=== PATIENT | female | born 1990 | race Caucasian/White ===

== ENCOUNTER 2020-06-21 17:56 | Emergency (ER) | payer MEDICAID ==
[2020-06-21] MEDS: Albuterol/Ipratropium 3.0-0.5 MG/3 ML Neb Soln NEB PRN (18:10)
[2020-06-21] MEDS: Morphine 2 MG/ML SYRINGE IVPUSH ONE ×2 (18:15→18:27)
[2020-06-21] MEDS: LORazepam 2 MG/ML SDV IVPUSH ONE (18:21)
[2020-06-21] MEDS: Morphine 4 MG/ML VIAL IVPUSH ONE (18:33)
[2020-06-21] MEDS: Iopamidol 755 Mg/ML 100 ML Bottle IV PRN (19:06)
[2020-06-21] MEDS: Sodium Chloride 0.9% 50 ML SDV FLUSH SCH (19:06)
[2020-06-21] MEDS: methylPREDNISolone Sodium Succinate 40 MG/1 ML SDV IVPUSH ONE (19:41)
--- NOTE | 2020-06-21 20:52 | ER ---
HPI: A 30-year-old lady who comes in with her with complaints of shortness of breath and coughing, this started yesterday. She tells me that the cough is dry and it sounds very hard and harsh. The patient has not been running a fever. She has not had any problems with falls or injuries. She was tested positive for COVID early this month. She is well past her quarantine period. The patient tells me that she was more fatigued and had a little nausea with that. She did not have much for respiratory symptoms. Further questioning reveals the patient has been smoking cigarettes for about a week. She was not smoking cigarettes before that, she was vaping before that. The patient tells me that when she had COVID, she was lying around for a while, not being very active. OBJECTIVE: GENERAL APPEARANCE: The patient is awake and alert. She is in moderate respiratory distress. VITAL SIGNS: Initially reveals she is afebrile. Pulse is 120, respirations 30, O2 sats 98% on room air. LUNGS: Clear with mild to moderately reduced air exchange. I do not hear any rales, wheezes, or rhonchi. CARDIAC: Heart sounds distinct with a rapid ventricular rate. No murmurs noted. SKIN: Warm and dry. Oral mucous membranes moist. INITIAL TREATMENT PLAN: An IV was started. The patient was given morphine 2 mg IV. This was repeated once again with mild improvement. A DuoNeb was given to the patient. This did not seem to help her very much. We gave Ativan 1 mg, which seemed to relax her a bit and a third dose of morphine 4 mg to help with the chest pain significantly and she was then able to breathe better. Her respirations dropped down to about 20-24. LABORATORY DATA: Labs included a CBC showing a white count of 18.9, hemoglobin is a little high, neutrophils are up. D-dimer is elevated at 2740. Troponin is negative. Comprehensive metabolic panel is mostly unremarkable. EKG just shows a tachycardic rhythm. INITIAL IMPRESSION: At this point, I am concerned mostly about a pulmonary embolism. The patient does score 7 on the Wells' criteria. A CT of the chest with contrast was obtained. It is negative for pulmonary embolism, but it does show a diffuse opacifications thought to be possibly infection or inflammation. DIAGNOSIS: Pneumonitis. TREATMENT PLAN: The patient was given Solu-Medrol 80 mg IV. We will send her home with prednisone. She is to take 20 mg b.i.d. for the next 2 days and then 30 mg once a day for 2 days. We will start her on Zithromax. She was given the first dose here in the emergency room. The patient is to go home and rest. I advised her not to do any smoking of cigarettes or vaping, and I do want her to follow up tomorrow in the clinic or here in the emergency room if needed for recheck before we get into the holiday weekend. The patient and her spouse have no further questions and agree with the treatment plan. CRS/MODL /[id number]
--- NOTE | 2020-06-23 12:01 | CT ---
DATE OF SERVICE: 06/21/20 CLINICAL DATA: SOB ENHANCED CHEST CT: Multislice acquisition through the chest with IV contrast was performed. No priors. No evidence of PE. There are patchy, poorly defined ground glass opacities scattered throughout both lungs with areas of associated consolidation. There are also scattered reticular opacities in both lower lungs. There are multiple calcified nodules in the left upper lobe consistent with prior granulomatous disease. There are bilateral calcified hilar nodes and there are calcified mediastinal nodes consistent with prior granulomatous disease. No pneumothorax. There are small bilateral pleural effusions. The heart size is normal. No significant pericardial effusion. There is mild mural thickening within the distal esophagus. Esophagitis should be considered. No other significant findings. IMPRESSION: 1) Negative for PE. No pneumothorax. 2) Patchy ground glass opacities scattered throughout both lungs with small areas of consolidation. Viral pneumonia should be considered. There are also scattered reticular opacities in both lower lungs. 3) Multiple calcified nodules in the left upper lobe and calcified mediastinal and hilar nodes consistent with prior granulomatous disease. 4) No other significant findings. [id number] [facility]
== END 2020-06-21 20:13 | disposition home or self-care (01) ==
LOC: LB.ED 17:56
DX: J18.9 Pneumonia, unspecified organism (principal); R79.1 Abnormal coagulation profile; F17.210 Nicotine dependence, cigarettes, uncomplicated; R00.0 Tachycardia, unspecified; Z86.19 Personal history of other infectious and parasitic diseases
CPT/HCPCS: 36415; 71260; 80053; 84484; 85025; 85379; 93005; 96374; 96375; 99285-25; J2060; J2270; J2920; J7620-GY; Q9967